=== PATIENT | female | born 1975 | race Caucasian/White ===

== ENCOUNTER 2022-07-22 11:10 | Day surgery (SDC) | payer OTHER ==
[~2022-07-22] VITALS: Ht 160 cm; Wt 71.6 kg
[2022-07-22] MEDS ORDERED: PROG100 (11:27)
[2022-07-22] MEDS ORDERED: METF500 (11:27)
[2022-07-22] MEDS ORDERED: EUTHYROX50 MCG (11:27)
[2022-07-22] MEDS ORDERED: LEVSOD25 (11:27)
[2022-07-22] MEDS ORDERED: LIOT25 (11:28)
== END 2022-07-22 13:35 | disposition home or self-care (01) ==
LOC: ORSCSDS 11:10
PROVIDERS: Internal Medicine Gastroenterology
PROC: 0DBK8ZX Excision of Ascending Colon, Via Natural or Artificial Opening Endoscopic, Diagnostic (ICD-10-PCS; principal; 2022-07-22 12:30)
DX: Z12.11 Encounter for screening for malignant neoplasm of colon (principal); D12.2 Benign neoplasm of ascending colon; K57.30 Diverticulosis of large intestine without perforation or abscess without bleeding; E11.9 Type 2 diabetes mellitus without complications; Z79.84 Long term (current) use of oral hypoglycemic drugs; Z79.899 Other long term (current) drug therapy
CPT/HCPCS: 82947; 88305; J2704; J7120